=== PATIENT | female | born 1960 | race African-American/Black ===

== ENCOUNTER 2016-10-26 21:32 | Inpatient (IN) ==
[2016-10-26] MEDS ORDERED: METOCLOPRAMIDE 10 MG/2 ML VIAL IV STA (22:02)
[2016-10-26] MEDS ORDERED: SODIUM CHLORIDE 0.9% 1,000 ML IV STA (22:02)
[2016-10-26] MEDS ORDERED: ONDANSETRON 4 MG/2 ML VIAL IV STA (22:02)
[2016-10-26] MEDS ORDERED: PANTOPRAZOLE 40 MG VIAL IV STA (22:02)
[2016-10-26] MEDS ORDERED: PANTOPRAZOLE 40 MG VIAL IV ONE (22:13)
[2016-10-26] MEDS ORDERED: ONDANSETRON 4 MG/2 ML VIAL ONE (22:14)
--- NOTE | 2016-10-26 22:23 | Emergency Department Note ---
Arrival - Arrival Chief Complaint: Abdominal / Flank Pain ED Nursing Triage Note: TRANSFER FROM [facility] IN STAPLES. WAS SEEN IN CLINIC EARLIER TODAY FOR C/O RIGHT UPPER ABD PAIN THAT STARTED WED. WAS TRANSFERRED TO [facility] FOR CT WHICH SHOWED SMALL BOWEL OBSTRUCTION Mode of Arrival: Stretcher Limitations: No Limitations Source: Patient Time Seen by Provider: 10/26/16 22:02 - History of Present Illness HPI Narrative: This 56-year-old black female presents on referral from [facility] for complaints of alleged small bowel obstruction. The patient states for the last 3 days she's had problems with nausea, vomiting, and abdominal cramps. However , most of those symptoms ended last night. She went to her medical clinic earlier today where they felt she needed further evaluation. A CT scan at [facility] was interpreted as a small bowel obstruction and she was transferred here. Currently the patient states she feels queasy but does not feel nauseated nor has any pain at the moment. She currently is in no medical distress. Onset (ago): day(s) (patient presents 3 days post-onset of symptoms) Consistency: constant Review of System - Review of System 12 point system: reviewed and no additional remarkable complaints except as stated - Review of System Gastrointestinal: Present: as per HPI Medical,Surgical,& Family Hx - Social History Smoking Status: Never smoker Frequency of Alcohol Use: None Type of Drug Use: None Exam Physical Examination: GENERAL: Well developed, well nourished black female in no acute distress. HEENT: Normocephalic. No trauma. Moist mucous membranes. EOMI. PERRLA. NECK: Supple. No adenopathy. CARDIAC: Regular. No murmurs. Heart rate 74 CHEST: Clear to auscultation. No respiratory distress. O2 sat 99% ABDOMEN: Soft. Nontender. Hypoactive bowel sounds. EXTREMITIES: No trauma. Normal ROM. No pedal edema. SKIN: No diaphoresis. No rash. NEURO: Alert. Neuro intact. No focal deficits. Vital Signs: Vital Signs Temperature 98.0 F 10/26/16 21:37 Pulse Rate 74 10/26/16 21:37 Respiratory Rate 18 10/26/16 21:37 Blood Pressure 138/78 10/26/16 21:37 O2 Sat by Pulse Oximetry 99 10/26/16 21:37 Course - Reevaluation(s) Reevaluation #1: Patient presents expectant of admission - Consultations Consultation #1: Discussed with Dr. Woodard who will admit for further evaluation and treatment Results - Labs Labs: Lab prolactin reveals a BUN of 13 creatinine 1.1 sodium 138 potassium 4.1 white blood cell count 9800 hematocrit 43 - Diagnostic Findings Procedure: CT Abdomen and Pelvis: image reviewed by me, report reviewed by me ( evaluation by our radiologist reveals evidence of inflammatory bowel disease with thickening of the small bowel wall associated with ascites and some mild pneumatosis intestinalis. There was no evidence of appendicitis and giving out intermittently nor of small bowel obstruction.) Disposition Clinical Impression: inflammatory bowel disease, ascites, pneumocystis intestinalis Case discussed with: patient Disposition: Still a Patient Condition: Guarded Time of Disposition: 22:29
[2016-10-26 22:36] LABS: Basophils % 0.1 % (0.0-0.8); Eosinophils % 0.1 % (0.00-10.9); Hematocrit 40.8 VOL% (35.7-47.0); Hemoglobin 13.3 GM/DL (12.0-16.0); Immature Granulocytes % 0.2 %; Immature Granulocytes Absolute 0.02 #; Lymphocytes # 2.1 10*3/uL (1.4-4.0); Lymphocytes % 21.3 % (21.3-54.2); Mean Corpuscular HGB Conc 32.6 GM/DL (32-36); Mean Corpuscular Hemoglobin 26 PG (27-34); Mean Corpuscular Volume 79.5 FL (87-102); Mean Platelet Volume 11.2 FL (9.6-12.0); Monocytes # 0.6 10*3/uL (0.11-0.8); Monocytes % 6.3 % (1.7-12.7); Neutrophils # 7.2 10*3/uL (1.4-7.4); Platelet Count 207 T/CUMM (130-400); Red Blood Count 5.13 MC/CUMM (3.8-5.5); Red Cell Distribution Width 14.1 % (9.3-17.3)
[2016-10-26 22:47] LABS: PT Patient Result 10.9 SECS; Partial Thromboplastin Time 25.4 SECS (0-40)
[2016-10-26 22:52] LABS: Albumin 3.3 G/DL (3.4-5.0); Bilirubin,Total 0.8 MG/DL (0.2-1.0); Calcium 8.4 MG/DL (8.5-10.1); Osmolality,Calculated 282.1 MOS/KG (273-304); Potassium 3.8 MMOL/L (3.5-5.1); Total Protein 6.8 G/DL (6.4-8.3)
[2016-10-26 22:53] LABS: Lactic Acid 1.1 MMOL/L (0.4-2.0)
[2016-10-26] MEDS ORDERED: MORPHINE 2 MG/1 ML SYRINGE IV PRN (23:28)
[2016-10-26] MEDS ORDERED: ACETAMINOPHEN 325 MG TABLET PO PRN (23:28)
[2016-10-26] MEDS ORDERED: DOCUSATE SODIUM 100 MG CAPSULE PO PRN (23:28)
[2016-10-26] MEDS ORDERED: SODIUM CHLORIDE 0.9% 1,000 ML IV SCH (23:30)
--- NOTE | 2016-10-26 23:44 | Hospitalist History & Physical ---
Assessment and Plan (1) Abdominal pain Status: Acute Current Visit: Yes (2) Enteritis Status: Acute Assessment and plan: Plan: 2/3: We'll start empiric antibiotics Cipro/Flagyl, consult GI for further workup of questionable IBD. We'll check stool studies as well to rule out infection as a possible etiology. Current Visit: Yes History of Present Illness Chief complaint: abd pain History of present illness: Ms. Sr is a 56 year old female with abdominal pain since Saturday. Located more on the right side, she states she now has diffuse pain, 6 out of 10 at worst, relieved with pain medication the ER however not fully resolved. She states she had nausea and vomiting yesterday multiple times but did have a small bowel movement. Today she was able to keep a small amount of food down but no BM or flatus today. She has not had any vomiting today either. No sick contacts. No history of high blood pressure diabetes, she is not on any daily medications other than vitamins. Her only surgery was a partial hysterectomy. Right now her symptoms are constant, she is in no fulminant distress. Apparently her CT abdomen and pelvis was initially read as a small bowel obstruction however ER physician consulted with our on-call radiologist and was felt to be more consistent with IBD/enteritis. Home Medications Medication Instructions Recorded Confirmed Type Multivitamin (Centrum) [Centrum 1 tablet PO DAILY 10/26/16 10/27/16 History Tab] Allergies Allergy/AdvReac Type Severity Reaction Status Date / Time No Known Allergies Allergy Verified 10/26/16 22:52 Medical,Surgical,& Family Hx - Medical History Cardio: No history of: CAD, Hypertension Endocrine: No history of: Diabetes Mellitus (NIDDM) Respiratory: No history of: COPD Gastrointestinal: No history of: GERD, GI Problems - Surgical History Reproductive Surgeries: Surgical HX of;: Gynecologic Surgery (partial hysterectomy) - Family History Family History: noncontributory - Social History Smoking Status: Never smoker Frequency of Alcohol Use: None Type of Drug Use: None Marital Status: Unknown Functional capacity: independent ambulation Review of systems: A 12 point review of systems is negative except as specified in the HPI Exam - Constitutional Vitals: Period Temp Pulse Resp BP Sys/Alcaraz Pulse Ox Last 24 Hr 98.0 F 74 18 138/78 99 Exam: EXAM: CONSTITUTIONAL: non toxic, NAD HEENT: NC, AT, OP benign, HAYES, EOMI CV: RRR no m/g/r RESP: clear B/L, no w/r/r GI: abd soft, mild diffuse tenderness to palpation, no rebound, ND, +bowel sounds INTEGUMENTARY: no lesions or rash EXTREMITIES: no c/c/e NEURO: no focal deficits PSYCH: unremarkable, A/O x3 Results - Labs CBC & BMP: 10/26/16 22:19 10/26/16 22:19 Lab Results: I have reviewed the past 24 hour labs - Diagnostic Findings Procedure: CT Abdomen and Pelvis: image reviewed by me, report reviewed by me
[2016-10-27] MEDS: CIPROFLOXACIN INJ 400 MG in PREMIX 1 EACH IV SCH ×2 (01:54→14:22)
[2016-10-27] MEDS: metroNIDAZOLE INJ 500 MG in PREMIX 1 EACH IV SCH ×3 (03:04→18:02)
[2016-10-27 03:51] LABS: Basophils % 0.1 % (0.0-0.8); Eosinophils % 0.1 % (0.00-10.9); Hematocrit 42.1 VOL% (35.7-47.0); Hemoglobin 13.5 GM/DL (12.0-16.0); Immature Granulocytes % 0.2 %; Immature Granulocytes Absolute 0.02 #; Lymphocytes # 1.7 10*3/uL (1.4-4.0); Lymphocytes % 19.2 % (21.3-54.2); Mean Corpuscular HGB Conc 32.1 GM/DL (32-36); Mean Corpuscular Hemoglobin 26 PG (27-34); Mean Corpuscular Volume 81.6 FL (87-102); Mean Platelet Volume 12.1 FL (9.6-12.0); Monocytes # 0.7 10*3/uL (0.11-0.8); Monocytes % 7.5 % (1.7-12.7); Neutrophils # 6.6 10*3/uL (1.4-7.4); Neutrophils % 72.9 % (38.7-73.9); Platelet Count 202 T/CUMM (130-400); Red Blood Count 5.16 MC/CUMM (3.8-5.5)
[2016-10-27 04:17] LABS: Calcium 8.1 MG/DL (8.5-10.1); Osmolality,Calculated 279.4 MOS/KG (273-304); Potassium 3.9 MMOL/L (3.5-5.1)
[2016-10-27] MEDS: PANTOPRAZOLE 40 MG TABLET PO SCH (08:12)
[2016-10-27] MEDS: ENOXAPARIN 40 MG/0.4 ML SYRINGE SUBCUT SCH (08:12)
[2016-10-27] MEDS: ONDANSETRON 4 MG/2 ML VIAL IV PRN (08:13)
--- NOTE | 2016-10-27 09:42 | XRay Report ---
Exam: XR abdomen 1V Date: 10/27/2016 4:00 AM Comparison: None Indication: Generalized abdominal pain Technique: Supine abdomen Findings: Retained contrast in the bowel from recent CT. No significant oral contrast reaching the colon. Dilated loops of small bowel with the largest loop measuring 52 mm. Bowel wall thickening. No acute osseous findings. Impression: Retained oral contrast in the bowel which does not reach the colon. Minimal to moderate dilatation of the small bowel with bowel wall thickening. These findings can be seen with SBO and followup x-ray may be helpful for further evaluation. PROCEDURE INTERPRETED AT [facility] DEPARTMENT OF RADIOLOGY Final Report Signed by: Dr. Tamiko Williamson
--- NOTE | 2016-10-27 15:41 | Gastrointestinal Consult Note ---
Assessment and Plan (1) Abdominal pain Status: Acute Current Visit: Yes (2) Abnormal findings on diagnostic imaging of abdomen Status: Acute Current Visit: Yes (3) Other specified counseling Status: Acute Current Visit: Yes History of Present Illness History of present illness: Ms. Sr is a 56 year old female Home Medications Medication Instructions Recorded Confirmed Type Multivitamin (Centrum) [Centrum 1 tablet PO DAILY 10/26/16 10/27/16 History Tab] Allergies Allergy/AdvReac Type Severity Reaction Status Date / Time No Known Allergies Allergy Verified 10/26/16 22:52 Medical,Surgical,& Family Hx - Medical History Cardio: No history of: CAD, Hypertension Endocrine: No history of: Diabetes Mellitus (IDDM), Diabetes Mellitus (NIDDM) Respiratory: No history of: COPD Gastrointestinal: No history of: GERD, GI Problems - Surgical History Reproductive Surgeries: Surgical HX of;: Gynecologic Surgery (partial hysterectomy), Hysterectomy (partial) - Family History Family History: Reports;: Family Hypertension (Mother) - Social History Smoking Status: Never smoker Frequency of Alcohol Use: None Type of Drug Use: None Exam - Constitutional Vitals: Period Temp Pulse Resp BP Sys/Alcaraz Pulse Ox Last 24 Hr 98.0 F-99.2 F 70-77 16-20 113-159/62-90 96-100 Results - Labs CBC & BMP: 10/27/16 02:38 10/27/16 02:38 Note Addendum: PLEASE NOTE -- automatic citation of patient information is unavoidable in this electronic note. I have made a reasonable effort to review the information cited , but it is not a part of my evaluation, impression, or recommendation unless specifically discussed in the dictated text that follows. As well, voice recognition software was used in the creation of this clinical note. Reasonable effort was made to identify and correct gross errors. Despite proofreading, errors in piece cutter may be present, including nonsense verbiage at times. If you encounter such an error, please contact me at for discussion and correction. -- Nyasia Chief complaint: abdominal pain History of present illness: this is a new patient, a 56-year-old female seen by consultation for evaluation of abdominal pain and enteritis. The patient is admitted to the hospitalist service under the care of Dr. Woodard with primary diagnosis of same. She reports her usual state of health prior to this past Saturday when she experienced onset of subacute right-sided abdominal pain, migratory, now diffuse in location, moderately severe, unrelated to body position, not reliably related to viewing take, and associated with both nausea and vomiting but no diarrhea. Evaluation in the emergency department was felt to be consistent with infectious or inflammatory enteritis and the patient was admitted for antibiotic therapy and volume resuscitation. She is improved but minimally, and has not begun to tolerate food. She has no bowel movements documented since her arrival in doesn't think she is really passing very much gas. She is unaware of any sick contacts. She is unaware of any tainted food exposure. She is unaware of any family history of inflammatory bowel disease. Patient denies fever, chills, night sweats, rigors, headache, dizziness, neck pain, visual changes, redness of the eyes, dysphagia, odynophagia, difficulty chewing, chest pain, shortness of breath, hematemesis, hematochezia, melena, proctalgia, constipation, dysuria, skin changes, temperature regulation issues, flushing, easy bleeding/bruising, musculoskeletal pain, mental status change, numbness/weakness in the extremities, yellowing of the eyes/skin, cutaneous eruptions, and other complaints in general. Review of systems: 12 point review of systems was negative except as documented above. Outpatient medications: multivitamin Inpatient medications: Tylenol, ciprofloxacin, Colace, Lovenox, [place], Flagyl, Zofran, Protonix Past Medical History: minimal Social history: negative tobacco. Negative alcohol Family history: no gastrointestinal cancers Physical examination: Vital Signs: Current vital signs reviewed and documented above. General Appearance: well-appearing. Not acutely ill. Head: Normocephalic. Neck: Palpation of the neck revealed no abnormalities. Eyes: No scleral icterus. No scleral injection. No conjunctival pallor. Oral Cavity: Odor of breath was normal. No drooling was observed. Lips showed no abnormalities. Floor of the mouth showed no abnormalities. Pharynx: Oropharynx was normal. Lungs: Respiration rhythm and depth was normal. Cardiovascular: Heart rate and rhythm were normal. No murmurs were appreciated. Abdomen: abdomen was not distended. Abdominal palpation revealed minimal tenderness and no hepatosplenomegaly. Ascites was not discovered. Abdominal auscultation revealed positive bowel sounds. Musculoskeletal System: Musculoskeletal system was grossly normal. Neurological: level of consciousness was normal. Speech was normal. Skin: General appearance was normal. Color and pigmentation were normal. No skin lesions. Laboratory: white blood count 9.0, hemoglobin 13.5, hematocrit 42.1, platelets 202, INR 1.0, PT 10.9, ALT 15, AST 13, total bilirubin 0.8, total protein 6.8, albumin 3.3 Radiology: CT scan taken yesterday at a outside facility revealed moderately dilated fluid-filled small bowel loops mucosal thickening involving the jejunum and ileum but without evidence of perforation, mucosal thickening in the stomach , and no finding with other abdominal organs. Abdominal x-ray taken on arrival here yesterday also demonstrated dilation of the small bowel with possible developing small bowel obstruction. Impressions: 1. Abdominal pain -- the differential diagnosis includes partial small bowel obstruction, infectious/inflammatory gastroenteritis, ischemic mesentery, and others. The patient does not report a history of inflammatory bowel disease , neither in herself nor in her family. While this is not necessarily protective , it may reduce her personal risk. I agree with antibiotic, bowel rest, and volume resuscitation. Presuming improvement, she will need to have surveillance radiology, upper endoscopy, and colonoscopy to ensure there is no evidence of same. She does not have a personal history of PVD, CAD, DM, etc. and may be at less risk for vascular compromise on that basis. There is no nausea or vomiting , abdominal distention, or loss of bowel sounds so probably does not need nasogastric decompression but would have a low threshold for same. If she does not improve significantly over the next 24 hours consideration will need to be given to surgical consultation. 2. Abnormal imaging of the small bowel -- as discussed above. 3. Other specified counseling: The patient was seen for greater than 30 minutes. The patient was counseled for greater than 50% of this time regarding differential diagnosis, likely diagnosis, diagnostic and therapeutic alternatives, risks/benefits/alternatives of medications and procedures, and plan of care generally. The patient expressed understanding and wishes to proceed. Recommendations: -- aggressive volume management -- continue antibiotic -- clear liquid diet as tolerated -- consider surgical consultation if symptoms do not improve -- radiologic surveillance during convalescence -- upper and lower endoscopy during convalescence -- thank you for this consultation. We will follow with you.
--- NOTE | 2016-10-27 16:54 | Hospitalist Progress Note ---
Assessment and Plan (1) Abdominal pain Status: Acute Current Visit: Yes (2) Partial small bowel obstruction Status: Suspected Current Visit: Yes (3) Enteritis Status: Acute Assessment and plan: Plan: 10/26: We'll start empiric antibiotics Cipro/Flagyl, consult GI for further workup of questionable IBD. We'll check stool studies as well to rule out infection as a possible etiology. 10/27: At this point there is concern for small bowel obstruction given findings on KUB. We'll repeat x-ray in the morning to see if she is passing contrast in the large bowel. If not will consult surgery. At this time she does not appear to have an acute abdomen, and will continue conservative measures for now. Current Visit: Yes Hospitalist: Subjective Interval history: Ms. Sr continues to have nausea and has had 2 episodes of vomiting today. She states her abdominal pain is actually much improved from admission. She has yet the past flatus or BM. KUB showed retained contrast in the small bowel was passed into the colon, worrisome for possible obstruction. Exam - Constitutional Vitals: Period Temp Pulse Resp BP Sys/Alcaraz Pulse Ox Last 24 Hr 98.0 F-99.4 F 70-78 16-20 113-159/62-90 96-100 Exam: EXAM: CONSTITUTIONAL: non toxic, NAD HEENT: NC, AT, OP benign, HAYES, EOMI CV: RRR no m/g/r RESP: clear B/L, no w/r/r GI: abd soft, mild diffuse tenderness to palpation, no rebound, ND, + hypoactive bowel sounds INTEGUMENTARY: no lesions or rash EXTREMITIES: no c/c/e NEURO: no focal deficits PSYCH: unremarkable, A/O x3 Results - Labs CBC & BMP: 10/27/16 02:38 10/27/16 02:38 Lab Results: I have reviewed the past 24 hour labs - Diagnostic Findings Procedure: KUB x-ray: image reviewed by me, report reviewed by me
[2016-10-28] MEDS: CIPROFLOXACIN INJ 400 MG in PREMIX 1 EACH IV SCH ×2 (01:33→13:55)
[2016-10-28] MEDS: metroNIDAZOLE INJ 500 MG in PREMIX 1 EACH IV SCH ×3 (03:01→18:08)
[2016-10-28 06:00] LABS: Basophils % 0.3 % (0.0-0.8); Eosinophils # 0.1 10*3/uL (0.0-0.87); Eosinophils % 0.8 % (0.00-10.9); Hematocrit 37.6 VOL% (35.7-47.0); Hemoglobin 12.3 GM/DL (12.0-16.0); Immature Granulocytes % 0.3 %; Immature Granulocytes Absolute 0.02 #; Lymphocytes # 1.4 10*3/uL (1.4-4.0); Lymphocytes % 18.4 % (21.3-54.2); Mean Corpuscular HGB Conc 32.7 GM/DL (32-36); Mean Corpuscular Hemoglobin 26 PG (27-34); Mean Corpuscular Volume 79.5 FL (87-102); Mean Platelet Volume 10.9 FL (9.6-12.0); Monocytes # 0.7 10*3/uL (0.11-0.8); Monocytes % 9.4 % (1.7-12.7); Neutrophils # 5.3 10*3/uL (1.4-7.4); Neutrophils % 70.8 % (38.7-73.9); Platelet Count 179 T/CUMM (130-400); Red Blood Count 4.73 MC/CUMM (3.8-5.5); White Blood Count 7.5 T/CUMM (4-12)
[2016-10-28 06:21] LABS: Calcium 7.9 MG/DL (8.5-10.1); Osmolality,Calculated 276.4 MOS/KG (273-304); Potassium 3.7 MMOL/L (3.5-5.1)
[2016-10-28] MEDS: ENOXAPARIN 40 MG/0.4 ML SYRINGE SUBCUT SCH (08:28)
[2016-10-28] MEDS: PANTOPRAZOLE 40 MG TABLET PO SCH (08:28)
--- NOTE | 2016-10-28 09:45 | XRay Report ---
Exam: XR KUB Date: 10/28/2016 4:00 AM Comparison: 10/27/2016 Indication: Generalized pain with possible bowel obstruction Technique: Supine abdomen Findings: Retained oral contrast within the dilated small bowel. No significant oral contrast in the colon. No acute osseous findings. Impression: Retained oral contrast in the more dilated small bowel which can be seen with SBO, etc. No significant oral contrast reaching the colon. Persistent bowel wall thickening. PROCEDURE INTERPRETED AT [facility] DEPARTMENT OF RADIOLOGY Final Report Signed by: Dr. Tamiko Williamson
--- NOTE | 2016-10-28 11:13 | General Surgery Consult Note ---
Assessment and Plan - Time spent with patient Time spent with patient: Less than 30 minutes (1) Partial small bowel obstruction Status: Suspected Assessment and plan: She has symptoms that could be consistent with partial small bowel obstruction and may be partially secondary to the findings seen on CT scan. She currently denies nausea or vomiting and is had passage of bowel movement. Her abdomen is nondistended and nontender this point. I would manage this conservatively as you were doing however if she fails to resolve then we may want to repeat her CT scan. I do not see evidence of complete bowel obstruction or surgical abdomen at this time Current Visit: Yes History of Present Illness Chief complaint: abdominal pain History of present illness: Ms. Sr is a 56 year old female We began having poorly localized mid abdominal pain about 4 days ago. She describes the pain is crampy and moderate in severity. The pain did not radiate. The pain was intermittent she did not know of any aggravating or alleviating factors. She states that the pain is actually better over the last 24 hours. She had nausea and vomiting associated with it yesterday but this has since resolved. She is had no further nausea and vomiting today. She denies fever or chills. She denies vomiting of blood or passage of blood. She has never had pain like this before. She does feel like she is improving. She apparently had a CT scan done at [place] but I do not have the films of and this apparently showed some bowel wall thickening consistent with enteritis. She has had diarrhea and this is gotten better. Home Medications Medication Instructions Recorded Confirmed Type Multivitamin (Centrum) [Centrum 1 tablet PO DAILY 10/26/16 10/27/16 History Tab] Allergies Allergy/AdvReac Type Severity Reaction Status Date / Time No Known Allergies Allergy Verified 10/26/16 22:52 Medical,Surgical,& Family Hx - Medical History Cardio: No history of: CAD, Hypertension Endocrine: No history of: Diabetes Mellitus (IDDM), Diabetes Mellitus (NIDDM) Respiratory: No history of: COPD Gastrointestinal: No history of: GERD, GI Problems - Surgical History Reproductive Surgeries: Surgical HX of;: Gynecologic Surgery (partial hysterectomy), Hysterectomy (partial) - Family History Family History: Reports;: Family Hypertension (Mother) - Social History Smoking Status: Never smoker Frequency of Alcohol Use: None Type of Drug Use: None - Constitutional Constitutional: Present: anorexia. Absent: chills, fever(s), weight loss - EENT Nose, mouth and throat: Absent: sore throat - Cardiovascular Cardiovascular: Absent: chest pain at rest, chest pain with activity, dyspnea, dyspnea on exertion, syncope - Respiratory Respiratory: Absent: cough, dyspnea, hemoptysis, dyspnea on exertion - Gastrointestinal Gastrointestinal: Present: abdominal pain, bloating, diarrhea, nausea, vomiting. Absent: hematemesis, hematochezia, melena, jaundice - Genitourinary Genitourinary: Absent: difficulty urinating, dysuria, hematuria - Musculoskeletal Musculoskeletal: Absent: back pain - Neurological Neurological: Absent: focal weakness, syncope - Endocrine Endocrine: Absent: polyuria Hematologic/Lymphatic: Absent: easy bleeding, easy bruising Exam - Constitutional Vitals: Period Temp Pulse Resp BP Sys/Alcaraz Pulse Ox Last 24 Hr 97.8 F-99.4 F 73-83 16-20 117-152/69-87 95-99 General appearance: no acute distress - Head Head exam: Present: normocephalic - Eye Eye exam: Present: EOMI. Absent: scleral icterus Pupils: Present: HAYES - ENT Mouth exam: Present: normal voice - Neck Neck exam: Present: trachea midline. Absent: lymphadenopathy, tenderness, thyromegaly - Respiratory Respiratory exam: Present: clear to auscultation bilaterally. Absent: accessory muscle use - Cardiovascular Cardiovascular exam: Present: RRR - GI/Abdominal GI/Abdominal exam: Present: normal bowel sounds, soft. Absent: distended, guarding, mass, tenderness, rebound - Extremities Exam Extremities exam: Absent: edema - Back Exam Back exam: Present: normal inspection - Neurological Exam Neurological exam: Present: alert, oriented X3. Absent: motor sensory deficit Speech: Present: normal - Skin Skin exam: Present: normal color Results - Labs CBC & BMP: 10/28/16 05:43 10/28/16 05:44 Lab Results: I have reviewed the past 24 hour labs
--- NOTE | 2016-10-28 11:41 | Gastrointestinal Progress Note ---
Assessment and Plan (1) Abdominal pain Status: Acute Current Visit: Yes (2) Abnormal findings on diagnostic imaging of abdomen Status: Acute Current Visit: Yes (3) Other specified counseling Status: Acute Current Visit: Yes Exam (Progress Note) - Constitutional Vitals: Period Temp Pulse Resp BP Sys/Alcaraz Pulse Ox Last 24 Hr 97.8 F-99.4 F 73-83 16-20 117-152/69-87 95-99 Results - Labs CBC & BMP: 10/28/16 05:43 10/28/16 05:44 Note Addendum: PLEASE NOTE -- automatic citation of patient information is unavoidable in this electronic note. I have made a reasonable effort to review the information cited , but it is not a part of my evaluation, impression, or recommendation unless specifically discussed in the dictated text that follows. As well, voice recognition software was used in the creation of this clinical note. Reasonable effort was made to identify and correct gross errors. Despite proofreading, errors in medical photographer may be present, including nonsense verbiage at times. If you encounter such an error, please contact me at for discussion and correction. -- Nyasia Chief complaint: abdominal pain History of present illness: the patient is a 56-year-old female seen with abnormal imaging of the small bowel. She reports feeling some better today. She has been taking oral nutrition and tolerating that. She has not had a bowel movement but is passing gas. Review of systems: 12 point review of systems was negative except as documented above. Inpatient medications: Tylenol, ciprofloxacin, Colace, Lovenox, Conklin, Flagyl, Zofran, Protonix Physical examination: Vital Signs: Current vital signs reviewed and documented above. General Appearance: well-appearing. Not acutely ill. Head: Normocephalic. Neck: Palpation of the neck revealed no abnormalities. Eyes: No scleral icterus. No scleral injection. No conjunctival pallor. Oral Cavity: Odor of breath was normal. No drooling was observed. Lips showed no abnormalities. Floor of the mouth showed no abnormalities. Pharynx: Oropharynx was normal. Lungs: Respiration rhythm and depth was normal. Cardiovascular: Heart rate and rhythm were normal. No murmurs were appreciated. Abdomen: abdomen was not distended. Abdominal palpation revealed minimal tenderness and no hepatosplenomegaly. Ascites was not discovered. Abdominal auscultation revealed positive bowel sounds. Musculoskeletal System: Musculoskeletal system was grossly normal. Neurological: level of consciousness was normal. Speech was normal. Skin: General appearance was normal. Color and pigmentation were normal. No skin lesions. Laboratory: white blood count 7.5, hemoglobin 12.3, hematocrit 37.6, platelets 179 Radiology: plain film of the abdomen reveals retained oral contrast in the small bowel and persistent small bowel wall thickening. Impressions: 1. Abdominal pain -- the differential is unchanged at this point but the patient does seem to be feeling some better. She has seen a marine consultant who does not believe that she has indication for surgical intervention at this point. I recommend continued conservative therapy as previously discussed. 2. Abnormal imaging of the small bowel -- as discussed above. 3. Other specified counseling: The patient was seen for less than 30 minutes. The patient was counseled for greater than 50% of this time regarding differential diagnosis, likely diagnosis, diagnostic and therapeutic alternatives, risks/benefits/alternatives of medications and procedures, and plan of care generally. The patient expressed understanding and wishes to proceed. Recommendations: -- aggressive volume management -- continue antibiotic -- clear liquid diet as tolerated -- agree with surgical consultation -- radiologic surveillance during convalescence -- upper and lower endoscopy during convalescence -- thank you for this consultation. Dr. Champagne will assume G.I. care for this patient tomorrow
--- NOTE | 2016-10-28 15:58 | Hospitalist Progress Note ---
Assessment and Plan (1) Abdominal pain Status: Acute Current Visit: Yes (2) Partial small bowel obstruction Status: Suspected Current Visit: Yes (3) Enteritis Status: Acute Assessment and plan: Plan: 2/: We'll start empiric antibiotics Cipro/Flagyl, consult GI for further workup of questionable IBD. We'll check stool studies as well to rule out infection as a possible etiology. 2: At this point there is concern for small bowel obstruction given findings on KUB. We'll repeat x-ray in the morning to see if she is passing contrast in the large bowel. If not will consult surgery. At this time she does not appear to have an acute abdomen, and will continue conservative measures for now. 10/28: According to the patient she has NOT had any passage of even a tiny BM or flatus since admission, despite this being documented in her ins and outs. Continue conservative measures for now, repeat KUB in the morning. Appreciate GI and surgical input. Current Visit: Yes Hospitalist: Subjective Interval history: Patient still has mild abdominal pain which is well controlled with pain medication. Looking at her ins and outs, a BM was documented however when I asked the patient about this she states she's had no BM whatsoever since she's been here. She denies passing flatus either. She has less nausea today. KUB continued to show retained contrast in the small bowel. Exam - Constitutional Vitals: Period Temp Pulse Resp BP Sys/Alcaraz Pulse Ox Last 24 Hr 97.8 F-99.4 F 69-83 16-20 117-152/69-87 95-99 Exam: EXAM: CONSTITUTIONAL: non toxic, NAD HEENT: NC, AT, OP benign, HAYES, EOMI CV: RRR no m/g/r RESP: clear B/L, no w/r/r GI: abd soft, mild diffuse tenderness to palpation, no rebound, ND, + hypoactive bowel sounds INTEGUMENTARY: no lesions or rash EXTREMITIES: no c/c/e NEURO: no focal deficits PSYCH: unremarkable, A/O x3 Results - Labs CBC & BMP: 10/28/16 05:43 10/28/16 05:44 Lab Results: I have reviewed the past 24 hour labs - Diagnostic Findings Procedure: KUB x-ray: image reviewed by me, report reviewed by me
[2016-10-29] MEDS: CIPROFLOXACIN INJ 400 MG in PREMIX 1 EACH IV SCH ×2 (02:19→16:15)
[2016-10-29] MEDS: metroNIDAZOLE INJ 500 MG in PREMIX 1 EACH IV SCH ×3 (03:28→18:08)
[2016-10-29 06:21] LABS: Basophils % 0.2 % (0.0-0.8); Eosinophils # 0.1 10*3/uL (0.0-0.87); Eosinophils % 2.3 % (0.00-10.9); Hematocrit 34.2 VOL% (35.7-47.0); Immature Granulocytes % 0.2 %; Immature Granulocytes Absolute 0.01 #; Lymphocytes # 2.2 10*3/uL (1.4-4.0); Mean Corpuscular HGB Conc 32.2 GM/DL (32-36); Mean Corpuscular Hemoglobin 26 PG (27-34); Mean Corpuscular Volume 80.9 FL (87-102); Mean Platelet Volume 11.5 FL (9.6-12.0); Monocytes # 0.7 10*3/uL (0.11-0.8); Monocytes % 12.3 % (1.7-12.7); Neutrophils # 2.3 10*3/uL (1.4-7.4); Platelet Count 165 T/CUMM (130-400); Red Blood Count 4.23 MC/CUMM (3.8-5.5); Red Cell Distribution Width 13.9 % (9.3-17.3); White Blood Count 5.3 T/CUMM (4-12)
[2016-10-29 06:52] LABS: Osmolality,Calculated 279.1 MOS/KG (273-304); Potassium 3.6 MMOL/L (3.5-5.1)
[2016-10-29] MEDS: PANTOPRAZOLE 40 MG TABLET PO SCH (08:32)
[2016-10-29] MEDS: ENOXAPARIN 40 MG/0.4 ML SYRINGE SUBCUT SCH (08:32)
--- NOTE | 2016-10-29 09:29 | XRay Report ---
History: Partial small bowel obstruction Date: 10/29/2016 Study: KUB Comparison exam: KUB 10/28/2016 There is mild disproportionate small bowel distention which is the same or minimally more prominent than on the comparison exam. There still some residual contrast in small bowel, though now a small amount of contrast is noted in the cecum. There is no gross mass lesion. Osseous structures are similar. Impression: Continued partial small bowel obstruction, the same or slightly increased PROCEDURE INTERPRETED AT [facility] DEPARTMENT OF RADIOLOGY Final Report Signed by: Dr. Yue Wallis
--- NOTE | 2016-10-29 09:59 | Gastrointestinal Progress Note ---
<WilburKatalina Parrish - Last Filed: 10/29/16 09:55> Assessment and Plan (1) Abdominal pain Status: Acute Assessment and plan: 2/3-Pain improved at present time. No N/V. NO BM or flatus. Tolerating clear liquids at present. KUB shows minimal change in SBO. Plan and addendum to follow by Dr Champagne. Current Visit: Yes Gastroenterology - PN: Subj Interval history: CC: Enteritis Pt is awaken alert, sitting up in chair. States she does feel better today than she did on admission. She still has not had a bowel movement since Saturday and denies passing any flatus at present time. Abdomen is soft, nontender. Denies any pain at present. Denies nausea or vomiting. Tolerated clear liquids this morning. KUB this morning shows continued partial small bowel obstruction, with minimal change. Noted that CT w/o contrast at outside facility on admission showed fluid in the pelvis, with dilated small bowel loops and distended distal jejunum as well as gastric thickening. There is no prior history in our facility database. ROS: Denies SOB or chest pain Exam (Progress Note) - Constitutional Vitals: Period Temp Pulse Resp BP Sys/Alcaraz Pulse Ox Last 24 Hr 9.4 F-99.1 F 64-70 16-19 97-132/48-73 95-99 General appearance: normal weight, no acute distress - Head Head exam: Present: normal inspection, normocephalic - Eye Eye exam: Present: other (lids and conjunctiva unremarakble). Absent: scleral icterus - ENT ENT exam: Present: normal exam, normal oropharynx - Neck Neck exam: Present: normal inspection - Respiratory Respiratory exam: Present: clear to auscultation bilaterally. Absent: rales, rhonchi, wheezes - Cardiovascular Cardiovascular exam: Present: regular rate and rhythm. Absent: diastolic murmur , JVD, systolic murmur - GI/Abdominal GI/Abdominal exam: Present: normal bowel sounds, soft. Absent: ascites, distended, mass, organomegaly, tenderness - Extremities Exam Extremities exam: Present: normal inspection, full ROM - Back Exam Back exam: Present: normal inspection - Neurological Exam Neurological exam: Present: alert, oriented X3 - Psychiatric Psychiatric exam: Present: normal affect, normal mood - Skin Skin exam: Present: normal color, warm, dry Results - Labs CBC & BMP: 10/29/16 05:39 10/29/16 05:39 Lab Results: I have reviewed the past 24 hour labs <Wilmer Champagne - Last Filed: 10/29/16 17:44> Exam (Progress Note) - Constitutional Vitals: Period Temp Pulse Resp BP Sys/Alcaraz Pulse Ox Last 24 Hr 9.4 F-99.1 F 61-70 18-18 97-129/48-74 95-99 Results - Labs CBC & BMP: 10/29/16 05:39 10/29/16 05:39
--- NOTE | 2016-10-29 11:37 | Hospitalist Progress Note ---
Assessment and Plan (1) Abdominal pain Status: Acute Current Visit: Yes (2) Partial small bowel obstruction Status: Suspected Current Visit: Yes (3) Enteritis Status: Acute Assessment and plan: Plan: 2/3: We'll start empiric antibiotics Cipro/Flagyl, consult GI for further workup of questionable IBD. We'll check stool studies as well to rule out infection as a possible etiology. 2: At this point there is concern for small bowel obstruction given findings on KUB. We'll repeat x-ray in the morning to see if she is passing contrast in the large bowel. If not will consult surgery. At this time she does not appear to have an acute abdomen, and will continue conservative measures for now. 10/28: According to the patient she has NOT had any passage of even a tiny BM or flatus since admission, despite this being documented in her ins and outs. Continue conservative measures for now, repeat KUB in the morning. Appreciate GI and surgical input. 10/29: Continue conservative management. Encourage out of bed/ambulation. She is tolerating clear liquids and medications without nausea or vomiting. Follow- up KUB in the morning. Current Visit: Yes Hospitalist: Subjective Interval history: Ms. Sr is tolerating clear liquids but still no flatus or BM. She denies abdominal pain states her nausea is better. A minimal amount of contrast has passed into the cecum on KUB today. Exam - Constitutional Vitals: Period Temp Pulse Resp BP Sys/Alcaraz Pulse Ox Last 24 Hr 9.4 F-99.1 F 61-70 16-19 97-132/48-73 95-99 Exam: EXAM: CONSTITUTIONAL: non toxic, NAD HEENT: NC, AT, OP benign, HAYES, EOMI CV: RRR no m/g/r RESP: clear B/L, no w/r/r GI: abd soft, nontender, no rebound, ND, bowel sounds more active today INTEGUMENTARY: no lesions or rash EXTREMITIES: no c/c/e NEURO: no focal deficits PSYCH: unremarkable, A/O x3 Results - Labs CBC & BMP: 10/29/16 05:39 10/29/16 05:39 Lab Results: I have reviewed the past 24 hour labs - Diagnostic Findings Procedure: KUB x-ray: image reviewed by me, report reviewed by me
[2016-10-29] MEDS ORDERED: MAGNESIUM HYDROXIDE SUSP 30 ML UDCUP PO ONE (15:59)
--- NOTE | 2016-10-29 15:59 | General Surgery Progress Note ---
Assessment and Plan (1) Partial small bowel obstruction Status: Suspected Assessment and plan: She has symptoms that could be consistent with partial small bowel obstruction and may be partially secondary to the findings seen on CT scan. She currently denies nausea or vomiting and is had passage of bowel movement. Her abdomen is nondistended and nontender this point. I would manage this conservatively as you were doing however if she fails to resolve then we may want to repeat her CT scan. I do not see evidence of complete bowel obstruction or surgical abdomen at this time 10/29: Her KUB still shows a picture consistent with partial small bowel obstruction though some contrast is moved into the cecum. She has no abdominal complaints today. She denies nausea or vomiting and is taking some liquids. She denies abdominal pain or abdominal cramping. She has not had a bowel movement. I have a hard time encouraging surgical intervention in light of the fact that she has no pain or abdominal symptoms. I would continue with conservative treatment and I think he can advance her diet. I will continue to follow. If she fails to improve we can repeat her CT scan. Current Visit: Yes Subjective Patient reports: Present: feels better, tolerating liquids well, no flatus, no bowel movement. Absent: still having pain, nausea, vomiting Exam - Constitutional Vitals: Period Temp Pulse Resp BP Sys/Alcaraz Pulse Ox Last 24 Hr 9.4 F-99.1 F 61-70 16-18 97-132/48-73 95-99 General appearance: no acute distress - Head Head exam: Present: normocephalic - Eye Eye exam: Absent: scleral icterus - Respiratory Respiratory exam: Absent: accessory muscle use - GI/Abdominal GI/Abdominal exam: Present: soft. Absent: distended, guarding, tenderness, rebound Results - Labs CBC & BMP: 10/29/16 05:39 10/29/16 05:39 Lab Results: I have reviewed the past 24 hour labs - Diagnostic Findings Procedure: KUB x-ray: report reviewed by me
[2016-10-30] MEDS: CIPROFLOXACIN INJ 400 MG in PREMIX 1 EACH IV SCH (01:48)
[2016-10-30] MEDS: metroNIDAZOLE INJ 500 MG in PREMIX 1 EACH IV SCH ×2 (03:50→12:44)
--- NOTE | 2016-10-30 07:27 | General Surgery Progress Note ---
Assessment and Plan (1) Partial small bowel obstruction Status: Suspected Assessment and plan: She has symptoms that could be consistent with partial small bowel obstruction and may be partially secondary to the findings seen on CT scan. She currently denies nausea or vomiting and is had passage of bowel movement. Her abdomen is nondistended and nontender this point. I would manage this conservatively as you were doing however if she fails to resolve then we may want to repeat her CT scan. I do not see evidence of complete bowel obstruction or surgical abdomen at this time 10/29: Her KUB still shows a picture consistent with partial small bowel obstruction though some contrast is moved into the cecum. She has no abdominal complaints today. She denies nausea or vomiting and is taking some liquids. She denies abdominal pain or abdominal cramping. She has not had a bowel movement. I have a hard time encouraging surgical intervention in light of the fact that she has no pain or abdominal symptoms. I would continue with conservative treatment and I think he can advance her diet. I will continue to follow. If she fails to improve we can repeat her CT scan. 10/30: She had changes on her KUB consistent with partial bowel obstruction. The patient is essentially asymptomatic this point. She has no abdominal cramping or any abdominal pain or distention. She is had no nausea or vomiting. I'm going to try a by mouth diet today. We will try liquids first and see if we can advance her diet. Current Visit: Yes Subjective Patient reports: Present: feels better, no flatus, no bowel movement. Absent: still having pain, nausea, vomiting, shortness of breath, fever Exam - Constitutional Vitals: Period Temp Pulse Resp BP Sys/Alcaraz Pulse Ox Last 24 Hr 98.1 F-98.8 F 60-73 18-19 105-129/62-74 96-100 General appearance: no acute distress - Respiratory Respiratory exam: Absent: accessory muscle use - GI/Abdominal GI/Abdominal exam: Present: soft. Absent: distended, tenderness, rebound Results - Labs CBC & BMP: 10/29/16 05:39 10/29/16 05:39 Lab Results: I have reviewed the past 24 hour labs
--- NOTE | 2016-10-30 07:40 | XRay Report ---
XR KUB Indication: Partial SBO Comparison: Abdominal x-ray dated October 29, 2016 Technique: Frontal views of the abdomen Findings: Contrast material noted within the small bowel the lower abdomen as well as within the cecum. There is mild distention of small bowel within the left upper quadrant, mid abdomen, and lower abdomen measuring up to 3.8 cm. Findings consistent with partial small bowel obstruction. Osseous and surrounding soft tissue structures appear grossly unchanged. IMPRESSION: As above. PROCEDURE INTERPRETED AT [facility] DEPARTMENT OF RADIOLOGY Final Report Signed by: Dr Myke Garcia
[2016-10-30] MEDS: MULTIVITAMIN (CENTRUM) TABLET PO SCH (08:12)
[2016-10-30] MEDS: PANTOPRAZOLE 40 MG TABLET PO SCH (08:13)
[2016-10-30] MEDS: ENOXAPARIN 40 MG/0.4 ML SYRINGE SUBCUT SCH (08:13)
--- NOTE | 2016-10-30 10:19 | Hospitalist Progress Note ---
Assessment and Plan - Time spent with patient Time spent with patient: Less than 30 minutes (due to assessment, plan and documentation.) (1) Partial small bowel obstruction Status: Suspected Assessment and plan: no BM or flatus yet hypoactive BS she has been advanced to a diet today no n/v or pain Current Visit: Yes Hospitalist: Subjective Interval history: Ms. Sr was seen on rounds this morning lying in bed talking on the phone. She states that she still had not had a BM, but denies any nausea, vomiting, or abdominal pain. Dr. Sukhdeep DEE is also following along with surgery for her partial small bowel obstruction. He has advanced her diet this morning and we will see how she tolerates this. Labs and vitals have been stable. Continue to follow alongside surgery. Exam - Constitutional Vitals: Period Temp Pulse Resp BP Sys/Alcaraz Pulse Ox Last 24 Hr 98.1 F-98.8 F 60-73 18-19 105-129/62-74 95-100 General appearance: normal weight, no acute distress - Head Head exam: Present: normal inspection, normocephalic - Eye Eye exam: Present: EOMI. Absent: scleral icterus Pupils: Present: HAYES, normal accommodation - ENT ENT exam: Present: normal exam, normal oropharynx - Neck Neck exam: Present: normal inspection. Absent: lymphadenopathy - Respiratory Respiratory exam: Present: clear to auscultation bilaterally. Absent: accessory muscle use - Cardiovascular Cardiovascular exam: Present: regular rate and rhythm. Absent: carotid bruit - GI/Abdominal GI/Abdominal exam: Present: hypoactive bowel sounds, soft. Absent: tenderness - Extremities Exam Extremities exam: Present: normal inspection. Absent: edema - Back Exam Back exam: Present: normal inspection. Absent: muscle spasm - Neurological Exam Neurological exam: Present: alert, oriented X3 - Psychiatric Psychiatric exam: Present: normal affect, normal mood - Skin Skin exam: Present: normal color, warm, dry, intact Results - Labs CBC & BMP: 10/29/16 05:39 10/29/16 05:39 Lab Results: I have reviewed the past 24 hour labs
[2016-10-30] MEDS ORDERED: LIDOCAINE 2% 5 ML VIAL ONE (11:20)
[2016-10-30] MEDS ORDERED: PROPOFOL 200 MG/20 ML VIAL IV ONE (11:20)
--- NOTE | 2016-10-30 11:31 | History and Physical Update ---
History and Physical Update - Physical Exam Mental Status: alert and oriented Heart: regular rate and rhythm Lung: clear to auscultation Abdomen: within normal limits Vitals: within normal limits
--- NOTE | 2016-10-30 11:34 | Operative Note ---
Date of procedure: 10/30/16 Pre-op diagnosis: Abnormal CT of the small bowel Procedure: EGD 56-year-old female who has had persistent complaints of nausea and vomiting with abnormal CT of the small bowel suggestive of enteritis with small bowel obstruction now for EGD Informed consent was obtained for the patient She was sedated with MAC anesthesia per anesthesia protocol. Patient placed left lateral decubitus position the Olympus flexible video upper endoscope was inserted oral cavity under direct vision the esophagus intubated findings: Esophagus-normal proximal mid esophageal mucosa. In the distal esophagus there is small hiatal hernia. No significant esophagitis, stricture or varices are seen. Stomach-normal insufflation normal mucosa to direct retroflexed views of the body, fundus, cardia and antrum the stomach. Pylorus-normal Duodenum-normal for the bulb and duodenum to the proximal jejunum no evidence of inflammation or ulceration was identified. The procedure terminated placed our procedure well she is discharged recovery in good condition Postop diagnosis: 1. Gastroesophageal reflux disease-continue PPI treatment antireflux precautions 2. Question of partial small bowel obstruction repeat CT if symptoms worsen. Anesthesia: [facility] [place] Surgeon / Physician: Wilmer Champagne Estimated blood loss: none Specimens: none sent Condition: stable Disposition: post procedure unit Results - Labs CBC & BMP: 10/29/16 05:39 10/29/16 05:39 Discharge Plan - Discharge Medications No Action Multivitamin (Centrum) [Centrum Tab] 1 tablet PO DAILY - Follow Up or Referral - Forms/Instructions
--- NOTE | 2016-10-30 11:39 | Anesthesia ---
Anesthesia Post OP - Post Ansesthetic Evaluation Patient seen in post op: Yes Resp: within normal limits CV: within normal limits Mental: within normal limits Temp: within normal limits [id number]: within normal limits Nausea and Vomiting: within normal limits Pain: within normal limits
[2016-10-31] MEDS: MULTIVITAMIN (CENTRUM) TABLET PO SCH (09:06)
[2016-10-31] MEDS: ENOXAPARIN 40 MG/0.4 ML SYRINGE SUBCUT SCH (09:06)
[2016-10-31] MEDS: PANTOPRAZOLE 40 MG TABLET PO SCH (09:06)
--- NOTE | 2016-10-31 09:29 | Gastrointestinal Progress Note ---
<WilburKatalina Parrish - Last Filed: 10/31/16 09:23> Assessment and Plan (1) Abdominal pain Status: Acute Assessment and plan: 10/31-No reports of pain, N/V. No BM x 7 days. No flatus. EGD findings noted. No change on KUB. Diet advanced. Continue to monitor. Plan and addendum to follow by Dr Champagne. 10/26-Pain improved at present time. No N/V. NO BM or flatus. Tolerating clear liquids at present. KUB shows minimal change in SBO. Plan and addendum to follow by Dr Champagne. Current Visit: Yes Gastroenterology - PN: Subj Interval history: CC: GERD, SBO Pt is awake and alert, sitting up in chair. States that her diet was advanced and she is tolerating solids at present time. She is having some "bubbling" in her abdomen however no flatus or bowel movement, states it has been a week today since her last movement. She has hyperactive bowel sounds, no tenderness. She denies any nausea or vomiting. EGD finding noted with GERD. KUB results on yesterday show mild distention of small bowel in LUQ, mid abdomen and lower abdomen at 3.8cm. Abdomen is soft, nontender. ROS: Denies SOB or chest pain Exam (Progress Note) - Constitutional Vitals: Period Temp Pulse Resp BP Sys/Alcaraz Pulse Ox Last 24 Hr 98.1 F-98.8 F 54-83 15-19 106-166/61-89 95-100 General appearance: normal weight, no acute distress - Head Head exam: Present: normal inspection, normocephalic - Eye Eye exam: Present: other (lids and conjunctiva unremarkable). Absent: scleral icterus - ENT ENT exam: Present: normal exam, normal oropharynx - Neck Neck exam: Present: normal inspection - Respiratory Respiratory exam: Present: clear to auscultation bilaterally. Absent: rales, rhonchi, wheezes - Cardiovascular Cardiovascular exam: Present: regular rate and rhythm. Absent: diastolic murmur , JVD, systolic murmur - GI/Abdominal GI/Abdominal exam: Present: hyperactive bowel sounds, soft. Absent: ascites, distended, mass, organomegaly, tenderness - Extremities Exam Extremities exam: Present: normal inspection, full ROM - Back Exam Back exam: Present: normal inspection - Neurological Exam Neurological exam: Present: alert, oriented X3 - Psychiatric Psychiatric exam: Present: normal affect, normal mood - Skin Skin exam: Present: normal color, warm, dry Results - Labs CBC & BMP: 10/29/16 05:39 10/29/16 05:39 Lab Results: I have reviewed the past 24 hour labs - Diagnostic Findings Procedure: KUB x-ray: report reviewed by me <Wilmer Champagne - Last Filed: 10/31/16 23:05> Exam (Progress Note) - Constitutional Vitals: Period Temp Pulse Resp BP Sys/Alcaraz Pulse Ox Last 24 Hr 98.1 F-98.3 F 55-83 17-18 116-135/62-75 96-100 Results - Labs CBC & BMP: 10/29/16 05:39 10/29/16 05:39
--- NOTE | 2016-10-31 12:15 | General Surgery Progress Note ---
Assessment and Plan (1) Partial small bowel obstruction Status: Suspected Assessment and plan: She has symptoms that could be consistent with partial small bowel obstruction and may be partially secondary to the findings seen on CT scan. She currently denies nausea or vomiting and is had passage of bowel movement. Her abdomen is nondistended and nontender this point. I would manage this conservatively as you were doing however if she fails to resolve then we may want to repeat her CT scan. I do not see evidence of complete bowel obstruction or surgical abdomen at this time 10/29: Her KUB still shows a picture consistent with partial small bowel obstruction though some contrast is moved into the cecum. She has no abdominal complaints today. She denies nausea or vomiting and is taking some liquids. She denies abdominal pain or abdominal cramping. She has not had a bowel movement. I have a hard time encouraging surgical intervention in light of the fact that she has no pain or abdominal symptoms. I would continue with conservative treatment and I think he can advance her diet. I will continue to follow. If she fails to improve we can repeat her CT scan. 10/30: She had changes on her KUB consistent with partial bowel obstruction. The patient is essentially asymptomatic this point. She has no abdominal cramping or any abdominal pain or distention. She is had no nausea or vomiting. I'm going to try a by mouth diet today. We will try liquids first and see if we can advance her diet. 28: She had her diet advanced and lunch today she is now complaining of abdominal distention and nausea and some mild cramping. Appears that she still has findings of ileus or partial bowel obstruction. I think that we need to repeat her CT scan and see if this appears changed. I did explain to her that she may require operative intervention. Current Visit: Yes Subjective Patient reports: Present: feels better, still having pain, no flatus, no bowel movement, nausea. Absent: tolerating a regular diet, vomiting, fever Exam - Constitutional Vitals: Period Temp Pulse Resp BP Sys/Alcaraz Pulse Ox Last 24 Hr 98.1 F-98.8 F 63-83 16-19 119-152/62-87 96-100 General appearance: no acute distress - Eye Eye exam: Absent: scleral icterus - ENT Mouth exam: Present: normal voice - Respiratory Respiratory exam: Absent: accessory muscle use - GI/Abdominal GI/Abdominal exam: Present: distended, soft. Absent: guarding, tenderness, rebound Results - Labs CBC & BMP: 10/29/16 05:39 10/29/16 05:39
--- NOTE | 2016-10-31 16:06 | Hospitalist Progress Note ---
Assessment and Plan (1) Partial small bowel obstruction Status: Acute Assessment and plan: The patient has symptoms consistent with small bowel obstruction. CT scan for follow-up has been ordered for tomorrow morning Current Visit: Yes Hospitalist: Subjective Interval history: The patient has continued bloating and abdominal colicky discomfort. Dr. Tarango has ordered a CT scan to reevaluate abdomen. Exam - Constitutional Vitals: Period Temp Pulse Resp BP Sys/Alcaraz Pulse Ox Last 24 Hr 98.1 F-98.8 F 55-83 17-19 116-129/62-72 96-100 Exam: Constitutional System: Mild distress. No tremulousness. Head: Normocephalic, atraumatic. Ears, Nose and Throat System: No evidence of Otitis or Mastoiditis. No epistaxis or discharge Eyes System: Pupils equal, round, and reactive. Extraocular muscles intact. Neck: Supple, without adenopathy, No jugular venous distention. No thyromegaly , neck mass, or prior surgery apparent. Respiratory System: Chest clear to auscultation. Cardiovascular System: Heart with regular rate and rhythm. No murmur. GI System: Abdomen soft, mild to moderate generalized tender. Tinkling bowel sounds present. Musculoskeletal System: limbs with no pedal edema. Full distal pulses. Neurological System: No discernable sensory deficit. No aphasia Psychiatric System: Conversation is rational Results - Labs CBC & BMP: 10/29/16 05:39 10/29/16 05:39
[2016-11-01 06:51] LABS: Basophils % 0.2 % (0.0-0.8); Eosinophils # 0.1 10*3/uL (0.0-0.87); Eosinophils % 1.1 % (0.00-10.9); Hematocrit 35.1 VOL% (35.7-47.0); Hemoglobin 11.7 GM/DL (12.0-16.0); Immature Granulocytes % 0.7 %; Immature Granulocytes Absolute 0.03 #; Lymphocytes # 1.7 10*3/uL (1.4-4.0); Lymphocytes % 37.7 % (21.3-54.2); Mean Corpuscular HGB Conc 33.3 GM/DL (32-36); Mean Corpuscular Hemoglobin 26 PG (27-34); Mean Corpuscular Volume 79.2 FL (87-102); Monocytes # 0.5 10*3/uL (0.11-0.8); Monocytes % 10.3 % (1.7-12.7); Neutrophils # 2.3 10*3/uL (1.4-7.4); Platelet Count 189 T/CUMM (130-400); Red Blood Count 4.43 MC/CUMM (3.8-5.5); Red Cell Distribution Width 14.1 % (9.3-17.3); White Blood Count 4.6 T/CUMM (4-12)
--- NOTE | 2016-11-01 06:58 | General Surgery Progress Note ---
Assessment and Plan (1) Partial small bowel obstruction Status: Acute Assessment and plan: She has symptoms that could be consistent with partial small bowel obstruction and may be partially secondary to the findings seen on CT scan. She currently denies nausea or vomiting and is had passage of bowel movement. Her abdomen is nondistended and nontender this point. I would manage this conservatively as you were doing however if she fails to resolve then we may want to repeat her CT scan. I do not see evidence of complete bowel obstruction or surgical abdomen at this time 10/29: Her KUB still shows a picture consistent with partial small bowel obstruction though some contrast is moved into the cecum. She has no abdominal complaints today. She denies nausea or vomiting and is taking some liquids. She denies abdominal pain or abdominal cramping. She has not had a bowel movement. I have a hard time encouraging surgical intervention in light of the fact that she has no pain or abdominal symptoms. I would continue with conservative treatment and I think he can advance her diet. I will continue to follow. If she fails to improve we can repeat her CT scan. 10/30: She had changes on her KUB consistent with partial bowel obstruction. The patient is essentially asymptomatic this point. She has no abdominal cramping or any abdominal pain or distention. She is had no nausea or vomiting. I'm going to try a by mouth diet today. We will try liquids first and see if we can advance her diet. : She had her diet advanced and lunch today she is now complaining of abdominal distention and nausea and some mild cramping. Appears that she still has findings of ileus or partial bowel obstruction. I think that we need to repeat her CT scan and see if this appears changed. I did explain to her that she may require operative intervention. 11/01: She continues to have vague cramping and nausea but not much pain. Her abdomen is minimally distended and I reviewed her CT scan films this morning but we do not have radiology report. This continues to look like bowel obstruction to me and she has not responded to conservative treatment. I think that we are going to need operative intervention. I will confirm these findings with radiology however I had already discussed with her the fact that we may need to proceed on to surgery. The etiology of her obstruction is unclear but hopefully we can establish a diagnosis at the time of surgery. Current Visit: Yes Subjective Patient reports: Present: pain is less, no flatus, no bowel movement, nausea. Absent: vomiting, shortness of breath, fever Exam - Constitutional Vitals: Period Temp Pulse Resp BP Sys/Alcaraz Pulse Ox Last 24 Hr 98.1 F-98.8 F 55-83 17-18 116-135/64-75 96-99 General appearance: no acute distress - Eye Eye exam: Absent: scleral icterus - Respiratory Respiratory exam: Absent: accessory muscle use - GI/Abdominal GI/Abdominal exam: Present: soft. Absent: distended, tenderness, rebound Results - Labs CBC & BMP: 11/01/16 06:40 10/29/16 05:39 Lab Results: I have reviewed the past 24 hour labs - Diagnostic Findings Procedure: CT Abdomen and Pelvis: image reviewed by me
[2016-11-01 07:15] LABS: Hypochromasia 1+; Microcytosis 1+; Ovalocytes Slight; Platelet Estimate Adequate
[2016-11-01 07:20] LABS: Calcium 8.6 MG/DL (8.5-10.1); Magnesium 2.2 MG/DL (1.8-2.4); Osmolality,Calculated 274.5 MOS/KG (273-304); Potassium 3.6 MMOL/L (3.5-5.1)
[2016-11-01] MEDS: ENOXAPARIN 40 MG/0.4 ML SYRINGE SUBCUT SCH (08:16)
[2016-11-01] MEDS: MULTIVITAMIN (CENTRUM) TABLET PO SCH (08:16)
[2016-11-01] MEDS: PANTOPRAZOLE 40 MG TABLET PO SCH (08:16)
--- NOTE | 2016-11-01 09:18 | CT Report ---
History: Small bowel obstruction Date: 11/01/2016 Study: CT abdomen and pelvis with IV contrast Comparison exam: No remote CT scan Technique: Spiral CT sections were obtained from the lung bases to the pubic symphysis following oral contrast and 100 mL Omnipaque 350 IV. Total DLP measures 988.6 mGy*cm. CT abdomen: There is minimal bilateral pleural effusion. There is some minimal dependent atelectasis in the lung bases. There is mild diffuse fatty infiltration of the liver. The liver, bile ducts, pancreas, adrenal glands, gallbladder, and kidneys are normal otherwise. There is bilateral renal excretion without hydronephrosis. There is a small hiatal hernia. There is no aortic aneurysm. There is no lymphadenopathy by short axis diameter criteria. There is no evidence of appendicitis. There is mild free fluid in the right lower quadrant. There is evidence of partial small bowel obstruction. There is a discrete small bowel transition zone in the right lower quadrant/upper right pelvis on axial images 120 through 125. There is abrupt change in caliber of small bowel at the level of some adjacent extrinsic soft tissue density measuring up to 3.1 cm. This soft tissue density may represent adherent ovarian tissue, but is nonspecific. Normal caliber terminal ileum is noted. CT pelvis: The uterus is not seen compatible with prior hysterectomy. There is mild free fluid in the pelvis. There is no palpable lymphadenopathy. Impression: There is small bowel obstruction with abrupt small bowel transition zone in the right lower quadrant/right upper pelvis. This abuts a 3.1 cm area of amorphous soft tissue density which could represent adherent ovarian tissue, but is nonspecific. There is some free fluid in the right lower quadrant and right pelvis. PROCEDURE INTERPRETED AT [facility] [place] DEPARTMENT OF RADIOLOGY Final Report Signed by: Dr. Yue Wallis
--- NOTE | 2016-11-01 10:13 | Gastrointestinal Progress Note ---
<WilburKatalina Parrish - Last Filed: 11/01/16 10:10> Assessment and Plan (1) Abdominal pain Status: Acute Assessment and plan: 11/01-N/V this morning following intake of contrast. CT of abd results noted. For laparoscopic surgery today with Dr Tarango. Plan and addendum to follow by DR Champagne. 10/31-No reports of pain, N/V. No BM x 7 days. No flatus. EGD findings noted. No change on KUB. Diet advanced. Continue to monitor. Plan and addendum to follow by Dr Champagne. 10/26-Pain improved at present time. No N/V. NO BM or flatus. Tolerating clear liquids at present. KUB shows minimal change in SBO. Plan and addendum to follow by Dr Champagne. Current Visit: Yes Gastroenterology - PN: Subj Interval history: CC: SBO Pt is seen, up on side of bed. States she is not feeling well today. She drank the contrast for the CT however states she threw it up shortly afterwards. She is more symptomatic today with nausea and some cramping. CT of abdomen shows small bowel obstruction with abrupt transition zone in RLQ that abuts 3.1cm area of soft tissue with free fluid in pelvis. She has been seen by Dr Best and is for laparascopy today with possible laparatomy. Abdomen is soft, distended, hypoactive bowel sounds. ROS: No acute distress Exam (Progress Note) - Constitutional Vitals: Period Temp Pulse Resp BP Sys/Alcaraz Pulse Ox Last 24 Hr 97.0 F-98.8 F 55-60 17-18 116-135/64-75 96-99 General appearance: normal weight, no acute distress - Head Head exam: Present: normal inspection, normocephalic - Eye Eye exam: Present: other (lids and conjunctiva unremarkable). Absent: scleral icterus - ENT ENT exam: Present: normal exam, normal oropharynx - Neck Neck exam: Present: normal inspection - Respiratory Respiratory exam: Present: clear to auscultation bilaterally. Absent: rales, rhonchi, wheezes - Cardiovascular Cardiovascular exam: Present: regular rate and rhythm. Absent: diastolic murmur , JVD, systolic murmur - GI/Abdominal GI/Abdominal exam: Present: distended, hypoactive bowel sounds, soft. Absent: ascites, mass, organomegaly, tenderness - Extremities Exam Extremities exam: Present: normal inspection, full ROM - Back Exam Back exam: Present: normal inspection - Neurological Exam Neurological exam: Present: alert - Psychiatric Psychiatric exam: Present: normal affect, normal mood - Skin Skin exam: Present: normal color, warm, dry Results - Labs CBC & BMP: 11/01/16 06:40 11/01/16 06:40 Lab Results: I have reviewed the past 24 hour labs <Wilmer Champagne - Last Filed: 11/01/16 17:09> Exam (Progress Note) - Constitutional Vitals: Period Temp Pulse Resp BP Sys/Alcaraz Pulse Ox Last 24 Hr 97.0 F-98.8 F 58-73 17-18 117-143/64-80 94-98 Results - Labs CBC & BMP: 11/01/16 06:40 11/01/16 06:40
--- NOTE | 2016-11-01 12:29 | Hospitalist Progress Note ---
Assessment and Plan (1) Partial small bowel obstruction Status: Acute Assessment and plan: The patient has symptoms consistent with small bowel obstruction. Dr. Cruz plans for surgery later today. Current Visit: Yes Hospitalist: Subjective Interval history: The patient has continued bowel obstruction symptoms today. CT scan confirms an obstruction near the cecum. Dr. Tarango is planning surgery later today Exam - Constitutional Vitals: Period Temp Pulse Resp BP Sys/Alcaraz Pulse Ox Last 24 Hr 97.0 F-98.8 F 58-73 17-18 117-143/64-79 96-99 Exam: Constitutional System: Moderate distress. No tremulousness. Head: Normocephalic, atraumatic. Ears, Nose and Throat System: No evidence of Otitis or Mastoiditis. No epistaxis or discharge Eyes System: Pupils equal, round, and reactive. Extraocular muscles intact. Neck: Supple, without adenopathy, No jugular venous distention. No thyromegaly , neck mass, or prior surgery apparent. Respiratory System: Chest clear to auscultation. Cardiovascular System: Heart with regular rate and rhythm. No murmur. GI System: Abdomen soft, mild to moderate generalized tender. Tinkling bowel sounds present. Musculoskeletal System: limbs with no pedal edema. Full distal pulses. Neurological System: No discernable sensory deficit. No aphasia Psychiatric System: Conversation is rational Results - Labs CBC & BMP: 11/01/16 06:40 11/01/16 06:40 Lab Results: I have reviewed the past 24 hour labs Quality Measures - VTE Contraindication to Pharmacological VTE Prophylaxis: High Risk of Bleeding
[2016-11-01] MEDS: ONDANSETRON 4 MG/2 ML VIAL IV PRN (14:19)
[2016-11-01] MEDS ORDERED: BUPIVACAINE 0.5% /EPI 10 ML VIAL ONE (16:24)
[2016-11-01] MEDS ORDERED: LIDOCAINE 1%/EPI INJ 20 ML VIAL ONE (16:24)
[2016-11-01] MEDS ORDERED: BUPIVACAINE MPF 0.25% /EPI 30 ML VIAL ONE (16:25)
[2016-11-01] MEDS ORDERED: ONDANSETRON 4 MG/2 ML VIAL ONE (17:04)
[2016-11-01] MEDS ORDERED: ROCURONIUM 100 MG/10 ML VIAL IV ONE (17:04)
[2016-11-01] MEDS ORDERED: LIDOCAINE 2% 5 ML VIAL ONE (17:04)
[2016-11-01] MEDS ORDERED: PROPOFOL 200 MG/20 ML VIAL IV ONE (17:04)
[2016-11-01] MEDS ORDERED: SUCCINYLCHOLINE 200 MG/10 ML VIAL ONE (17:04)
--- NOTE | 2016-11-01 18:53 | Operative Note ---
Date of procedure: 11/01/16 Pre-op diagnosis: small bowel obstruction Post-op diagnosis: same Procedure: Laparoscopic converted to partially open small bowel enteroclysis with segmental small bowel resection and anastomosis #2 biopsy of right pelvic sidewall mass Findings and technique: After informed consent was obtained the patient was brought the operating room and placed in spine position. After successful induction with general anesthesia the patient's abdomen was prepped and draped in usual sterile fashion. Local anesthesia was infiltrated the umbilicus where small incision was made and an open technique used during the perineal cavity under direct vision. Oliver cannula was inserted and pneumoperitoneum was established. Camera was inserted and an additional 11 mm port was placed in the upper midline under camera vision and an additional 5 mm port was placed in the lower midline under camera vision. Exploration of the abdomen was carried out with the patient was noted to have a large amount of dilated small bowel and then at the mid to distal jejunum there was a loop of bowel passing under several thick adhesive bands between portion of the ileum and the right pelvic sidewall. These bands were lysed and there were still bowel densely adhesed to the right pelvic sidewall. I dissected this laparoscopically but reached a point where I did not feel I could safely proceed further. I then connected the mid line port sites in the mid lower midline and the umbilical region. Through this small incision was then able to dissect the small bowel free as I lifted the small bowel up into the incision and was very raw and deserosalized over about a 5 cm segment and I elected to's resect this segment. The bowel was resected between JOSE MANUEL stapling devices and the mesentery divided between clamps and ties. A stapled anastomosis performed without tension and the bowel appeared to be well-perfused. The openings in the ends of the bowel closed the TA 60 stapling device and the mesenteric defect closed with interrupted silk suture. Prior to performing the anastomosis I decompressed the proximal dilated bowel with a suction cannula removing a large amount of gas and liquid. The bowel was returned to its normal position the area in the pelvic sidewall was inspected and this appeared to correlate with the findings seen on CT scan and this appeared to represent a retention cyst and maybe an old retained ovarian remnant. This area was biopsied. This appeared benign. The area was inspected for bleeding and none was noted with the balance normal position and abdomen was irrigated and suctioned dry. Sponge and instrument counts were the midline fascia was closed with running #1 PDS suture and the skin closed with skin clips. She appeared to tolerate the procedure well and she did receive perioperative IV antibiotics as well as DVT prophylaxis. She had no apparent complications and appeared to tolerate the procedure well. Anesthesia: GETA, local Surgeon / Physician: Isaias Tarango III. Estimated blood loss: other (50ml) Specimens: other (small bowel segment and pelvic sidewall mass biopsy) Condition: stable Disposition: PACU Results - Labs CBC & BMP: 11/01/16 06:40 11/01/16 06:40 Discharge Plan - Discharge Medications No Action Multivitamin (Centrum) [Centrum Tab] 1 tablet PO DAILY - Follow Up or Referral - Forms/Instructions
[2016-11-01] MEDS ORDERED: fentaNYL 100 MCG/2 ML VIAL ONE ×2 (19:03)
[2016-11-01] MEDS ORDERED: MIDAZOLAM 2 MG/2 ML VIAL ONE (19:03)
[2016-11-01] MEDS ORDERED: SEVOFLURANE 1 UNIT/15 MINUTE INH ONE (19:03)
[2016-11-01] MEDS ORDERED: LACTATED RINGERS 1,000 ML IV ONE (19:03)
[2016-11-01] MEDS ORDERED: ONDANSETRON 4 MG/2 ML VIAL IV PRN (19:15)
[2016-11-01] MEDS ORDERED: HYDROmorphone 2 MG/1 ML VIAL IV PRN (19:15)
[2016-11-01 19:21] LABS: Apearance,Urine Slightly Hazy (Clear); Bilirubin,Urine Negative (Negative); Blood, Urine Moderate mg/dL (Negative); Glucose,Urine (UA) Negative (Negative); Ketones,Urine 80 mg/dL (Negative); Mucus,Urine Occasional /LPF (Occasional); Nitrite,Urine Negative (Negative); Protein,Urine Negative; RBC,Urine 10 /HPF (0-4); Squamous Epithelial Cell,Urine Occasional /HPF (0-10); Urine Color Yellow (Yellow); Urine Specific Gravity 1.029 (1.001-1.035); Urine Urobilinogen < 2.0 EU/DL (0.2-1.0); WBC,Urine <1 /HPF (0-6)
[2016-11-01] MEDS ORDERED: MORPHINE PCA 30 MG/30 ML SYRINGE IV ONE (19:24)
[2016-11-01] MEDS ORDERED: LACTATED RINGERS 1,000 ML IV SCH (19:30)
[2016-11-01] MEDS: MORPHINE PCA 30 MG/30 ML SYRINGE IV SCH (19:39)
--- NOTE | 2016-11-01 20:13 | Anesthesia ---
Anesthesia Post OP - Post Ansesthetic Evaluation Patient seen in post op: Yes Resp: within normal limits CV: within normal limits Mental: within normal limits Temp: within normal limits [id number]: within normal limits Nausea and Vomiting: within normal limits Pain: within normal limits
[2016-11-01] MEDS: DEXTROSE 5% LACTATED RINGERS 1,000 ML IV SCH (20:18)
[2016-11-01 20:21] LABS: Hematocrit 38.3 VOL% (35.7-47.0); Hemoglobin 12.6 GM/DL (12.0-16.0)
[2016-11-02 06:15] LABS: Hematocrit 34.6 VOL% (35.7-47.0); Hemoglobin 11.5 GM/DL (12.0-16.0)
[2016-11-02 06:17] LABS: Basophils % 0.1 % (0.0-0.8); Eosinophils % 0.5 % (0.00-10.9); Hemoglobin 11.3 GM/DL (12.0-16.0); Immature Granulocytes % 0.4 %; Immature Granulocytes Absolute 0.03 #; Lymphocytes # 1.8 10*3/uL (1.4-4.0); Lymphocytes % 23.7 % (21.3-54.2); Mean Corpuscular HGB Conc 33.2 GM/DL (32-36); Mean Corpuscular Hemoglobin 26 PG (27-34); Mean Corpuscular Volume 78.5 FL (87-102); Mean Platelet Volume 11.2 FL (9.6-12.0); Monocytes # 0.5 10*3/uL (0.11-0.8); Monocytes % 6.3 % (1.7-12.7); Neutrophils # 5.3 10*3/uL (1.4-7.4); Platelet Count 195 T/CUMM (130-400); Red Blood Count 4.33 MC/CUMM (3.8-5.5); Red Cell Distribution Width 14.3 % (9.3-17.3); White Blood Count 7.7 T/CUMM (4-12)
[2016-11-02 06:50] LABS: Potassium 4.1 MMOL/L (3.5-5.1)
[2016-11-02] MEDS: MULTIVITAMIN (CENTRUM) TABLET PO SCH (09:08)
[2016-11-02] MEDS: PANTOPRAZOLE 40 MG TABLET PO SCH (09:08)
--- NOTE | 2016-11-02 09:08 | Gastrointestinal Progress Note ---
<WilburKatalina Parrish - Last Filed: 11/02/16 09:06> Assessment and Plan (1) Abdominal pain Status: Acute Assessment and plan: 11/02-No N/V, post operative abd pain, controlled. Operative findings noted. Remains NPO at present time. Plan and addendum to follow by Dr Champagne 11/01-N/V this morning following intake of contrast. CT of abd results noted. For laparoscopic surgery today with Dr Tarango. Plan and addendum to follow by DR Champagne. 10/31-No reports of pain, N/V. No BM x 7 days. No flatus. EGD findings noted. No change on KUB. Diet advanced. Continue to monitor. Plan and addendum to follow by Dr Champagne. 10/26-Pain improved at present time. No N/V. NO BM or flatus. Tolerating clear liquids at present. KUB shows minimal change in SBO. Plan and addendum to follow by Dr Champagne. Current Visit: Yes Gastroenterology - PN: Subj Interval history: CC: Small bowel obstruction Pt is awake, alert, lying in bed with spouse at side. Pt states she is having less discomfort today than prior to surgery with mild post operative pain. She denies any nausea or vomiting. NG tube is patent at this time. She remains NPO. She is using her ORE TESTER minimally at present. No reports of flatus. Abdomen is less distended, tender to palpation. ROS: Denies SOB or chest pain Exam (Progress Note) - Constitutional Vitals: Period Temp Pulse Resp BP Sys/Alcaraz Pulse Ox Last 24 Hr 98 F-99.0 F 66-81 14-21 100-163/56-80 93-100 General appearance: normal weight, no acute distress - Head Head exam: Present: normal inspection, normocephalic - Eye Eye exam: Present: other (lids and conjunctiva unremarkable). Absent: scleral icterus - ENT ENT exam: Present: normal exam, normal oropharynx - Neck Neck exam: Present: normal inspection - Respiratory Respiratory exam: Present: clear to auscultation bilaterally. Absent: rales, rhonchi, wheezes - Cardiovascular Cardiovascular exam: Present: regular rate and rhythm. Absent: diastolic murmur , JVD, systolic murmur - GI/Abdominal GI/Abdominal exam: Present: hypoactive bowel sounds, tenderness, soft. Absent: ascites, distended, mass, organomegaly - Extremities Exam Extremities exam: Present: normal inspection, full ROM - Back Exam Back exam: Present: normal inspection - Neurological Exam Neurological exam: Present: alert, oriented X3 - Psychiatric Psychiatric exam: Present: normal affect, normal mood - Skin Skin exam: Present: normal color, warm, dry Results - Labs CBC & BMP: 11/02/16 05:48 11/02/16 05:48 Lab Results: I have reviewed the past 24 hour labs <Wilmer Champagne - Last Filed: 11/02/16 13:33> Exam (Progress Note) - Constitutional Vitals: Period Temp Pulse Resp BP Sys/Alcaraz Pulse Ox Last 24 Hr 98 F-99.0 F 66-81 14-21 100-163/56-80 93-100 Results - Labs CBC & BMP: 11/02/16 10:53 11/02/16 05:48
--- NOTE | 2016-11-02 09:15 | Event Note ---
Postoperative day #1 small bowel obstruction with small bowel resection. She feels much better. She does not have the cramping pain and nausea. She is having minimal nasogastric tube output we will discontinue her tube. Her abdomen is benign. We will get her up out of bed and get her [place] cath out. Her pathology is pending but I suspect that this was benign adhesions.
[2016-11-02] MEDS: ENOXAPARIN 40 MG/0.4 ML SYRINGE SUBCUT SCH (10:21)
--- NOTE | 2016-11-02 11:02 | Hospitalist Progress Note ---
Assessment and Plan (1) Partial small bowel obstruction Status: Acute Assessment and plan: Postoperative day #1 laparotomy. Current Visit: Yes Hospitalist: Subjective Interval history: The patient has less abdominal distention. NG tube functional. Postoperative day #1 lysis of adhesions with end and reanastomosis of small bowel Exam - Constitutional Vitals: Period Temp Pulse Resp BP Sys/Alcaraz Pulse Ox Last 24 Hr 98 F-99.0 F 66-81 14-21 100-163/56-80 93-100 Exam: Constitutional System: Minimal distress. No tremulousness. Head: Normocephalic, atraumatic. Ears, Nose and Throat System: No evidence of Otitis or Mastoiditis. No epistaxis or discharge Eyes System: Pupils equal, round, and reactive. Extraocular muscles intact. Neck: Supple, without adenopathy, No jugular venous distention. No thyromegaly , neck mass, or prior surgery apparent. Respiratory System: Chest clear to auscultation. Cardiovascular System: Heart with regular rate and rhythm. No murmur. GI System: Abdomen soft, mild to moderate generalized tender. Tinkling bowel sounds present. Musculoskeletal System: limbs with no pedal edema. Full distal pulses. Neurological System: No discernable sensory deficit. No aphasia Psychiatric System: Conversation is rational Results - Labs CBC & BMP: 11/02/16 05:48 11/02/16 05:48 Lab Results: I have reviewed the past 24 hour labs Quality Measures - VTE Contraindication to Pharmacological VTE Prophylaxis: High Risk of Bleeding
[2016-11-02 11:07] LABS: Hematocrit 33.6 VOL% (35.7-47.0); Hemoglobin 11.1 GM/DL (12.0-16.0)
[2016-11-02] MEDS: DEXTROSE 5% LACTATED RINGERS 1,000 ML IV SCH ×3 (14:29→22:32)
[2016-11-02] MEDS: MORPHINE PCA 30 MG/30 ML SYRINGE IV SCH (19:45)
[2016-11-03] MEDS: DEXTROSE 5% LACTATED RINGERS 1,000 ML IV SCH ×3 (06:18→21:20)
[2016-11-03] MEDS: MULTIVITAMIN (CENTRUM) TABLET PO SCH (08:41)
[2016-11-03] MEDS: ENOXAPARIN 40 MG/0.4 ML SYRINGE SUBCUT SCH (08:42)
[2016-11-03] MEDS: PANTOPRAZOLE 40 MG TABLET PO SCH (08:42)
--- NOTE | 2016-11-03 09:42 | Event Note ---
11/03/2016 Patient is status post small bowel resection for small bowel obstruction and is basically looking pretty good with minimal to moderate discomfort. Abdomen is soft there's few bowel sounds present at this time. No distention noted. Incisions look clean and dry. Will let her sit some water and have some hard candy and chewing gum but now encouraged her to get up and move around and ambulate.
--- NOTE | 2016-11-03 11:33 | Hospitalist Progress Note ---
Assessment and Plan (1) Partial small bowel obstruction Status: Acute Assessment and plan: Postoperative day #2 laparotomy. Current Visit: Yes Hospitalist: Subjective Interval history: The patient is postoperative day #3 from laparotomy with small bowel resection. The patient was ambulating the hallway and the NG tube is out. The patient is taking a few sips of water and is hungry. No flatus at this time Exam - Constitutional Vitals: Period Temp Pulse Resp BP Sys/Alcaraz Pulse Ox Last 24 Hr 98.6 F-100 F 77-86 18-20 112-120/61-68 94-99 Exam: Constitutional System: Minimal distress. No tremulousness. Head: Normocephalic, atraumatic. Ears, Nose and Throat System: No evidence of Otitis or Mastoiditis. No epistaxis or discharge Eyes System: Pupils equal, round, and reactive. Extraocular muscles intact. Neck: Supple, without adenopathy, No jugular venous distention. No thyromegaly , neck mass, or prior surgery apparent. Respiratory System: Chest clear to auscultation. Cardiovascular System: Heart with regular rate and rhythm. No murmur. GI System: Abdomen soft, mild to moderate generalized tender. Tinkling bowel sounds present. Musculoskeletal System: limbs with no pedal edema. Full distal pulses. Neurological System: No discernable sensory deficit. No aphasia Psychiatric System: Conversation is rational Results - Labs CBC & BMP: 11/02/16 10:53 11/02/16 05:48 Lab Results: I have reviewed the past 24 hour labs Quality Measures - VTE Contraindication to Pharmacological VTE Prophylaxis: High Risk of Bleeding
[2016-11-03] MEDS: LEVOFLOXACIN INJ 500 MG in PREMIX 1 EACH IV SCH (14:49)
[2016-11-04] MEDS: DEXTROSE 5% LACTATED RINGERS 1,000 ML IV SCH ×2 (05:28→12:42)
[2016-11-04] MEDS: MORPHINE PCA 30 MG/30 ML SYRINGE IV SCH ×2 (08:18→22:14)
[2016-11-04] MEDS: PANTOPRAZOLE 40 MG TABLET PO SCH (08:30)
[2016-11-04] MEDS: MULTIVITAMIN (CENTRUM) TABLET PO SCH (08:30)
[2016-11-04] MEDS: ENOXAPARIN 40 MG/0.4 ML SYRINGE SUBCUT SCH (08:30)
--- NOTE | 2016-11-04 10:17 | Event Note ---
11/04/2016. Patient is progressing fairly slowly at this time. Still no movement or flatus but hypoactive bowel sounds are present. Incision looks clean and dry. She just does not open up well but has not had any nausea. We will attempt to give her some clear liquids and see if this stimulates things and get something moving.
--- NOTE | 2016-11-04 13:34 | Hospitalist Progress Note ---
Assessment and Plan (1) Partial small bowel obstruction Status: Acute Assessment and plan: Postoperative day #3 laparotomy. Awaiting return of bowel function Current Visit: Yes Hospitalist: Subjective Interval history: The patient is postoperative day #3 from laparotomy with small bowel resection for obstruction. The patient had end-to-end anastomosis. Bowel function has not yet returned. The patient is tolerating sips of clear liquids but has not passed flatus or stool despite walker in the hallway. Exam - Constitutional Vitals: Period Temp Pulse Resp BP Sys/Alcaraz Pulse Ox Last 24 Hr 97.7 F-99.8 F 72-89 16-20 106-128/52-73 95-98 Exam: Constitutional System: Minimal distress. No tremulousness. Head: Normocephalic, atraumatic. Ears, Nose and Throat System: No evidence of Otitis or Mastoiditis. No epistaxis or discharge Eyes System: Pupils equal, round, and reactive. Extraocular muscles intact. Neck: Supple, without adenopathy, No jugular venous distention. No thyromegaly , neck mass, or prior surgery apparent. Respiratory System: Chest clear to auscultation. Cardiovascular System: Heart with regular rate and rhythm. No murmur. GI System: Abdomen soft, mild to moderate generalized tender. Tinkling bowel sounds present. Musculoskeletal System: limbs with no pedal edema. Full distal pulses. Neurological System: No discernable sensory deficit. No aphasia Psychiatric System: Conversation is rational Results - Labs CBC & BMP: 11/02/16 10:53 11/02/16 05:48 Lab Results: I have reviewed the past 24 hour labs Quality Measures - VTE Contraindication to Pharmacological VTE Prophylaxis: High Risk of Bleeding
[2016-11-04] MEDS: LEVOFLOXACIN INJ 500 MG in PREMIX 1 EACH IV SCH (14:52)
[2016-11-05] MEDS: DEXTROSE 5% LACTATED RINGERS 1,000 ML IV SCH ×3 (01:08→11:58)
[2016-11-05 07:05] LABS: Basophils % 0.2 % (0.0-0.8); Eosinophils # 0.2 10*3/uL (0.0-0.87); Eosinophils % 2.5 % (0.00-10.9); Hematocrit 30.8 VOL% (35.7-47.0); Immature Granulocytes % 0.3 %; Immature Granulocytes Absolute 0.02 #; Lymphocytes # 1.3 10*3/uL (1.4-4.0); Lymphocytes % 20.3 % (21.3-54.2); Mean Corpuscular HGB Conc 32.5 GM/DL (32-36); Mean Corpuscular Hemoglobin 26 PG (27-34); Mean Corpuscular Volume 81.1 FL (87-102); Mean Platelet Volume 11.5 FL (9.6-12.0); Monocytes # 0.6 10*3/uL (0.11-0.8); Monocytes % 9.2 % (1.7-12.7); Neutrophils # 4.3 10*3/uL (1.4-7.4); Neutrophils % 67.5 % (38.7-73.9); Platelet Count 189 T/CUMM (130-400); Red Cell Distribution Width 14.3 % (9.3-17.3); White Blood Count 6.4 T/CUMM (4-12)
[2016-11-05 07:41] LABS: Calcium 8.2 MG/DL (8.5-10.1); Magnesium 1.9 MG/DL (1.8-2.4); Potassium 3.8 MMOL/L (3.5-5.1)
[2016-11-05] MEDS ORDERED: BISACODYL 10 MG SUPP RECTAL ONE (08:00)
--- NOTE | 2016-11-05 08:00 | Event Note ---
She feels well but is not had a bowel movement or flatus. She has not had nausea or vomiting. Her abdomen is minimally distended and nontender. She is afebrile with stable vital signs. She appears to have some continued ileus which is not surprising considering the degree of dilated bowel in the chronicity of her bowel obstruction. I recommended that she chew chewing gum to help stimulate bowel motility. We will try to get her up more. Her lab work looks okay.
[2016-11-05] MEDS: ENOXAPARIN 40 MG/0.4 ML SYRINGE SUBCUT SCH (09:24)
[2016-11-05] MEDS: MULTIVITAMIN (CENTRUM) TABLET PO SCH (09:25)
[2016-11-05] MEDS: PANTOPRAZOLE 40 MG TABLET PO SCH (09:25)
--- NOTE | 2016-11-05 11:23 | Hospitalist Progress Note ---
Assessment and Plan (1) Abdominal pain Status: Acute Current Visit: Yes (2) Enteritis Status: Acute Current Visit: Yes (3) Abnormal findings on diagnostic imaging of abdomen Status: Acute Current Visit: Yes (4) Other specified counseling Status: Acute Current Visit: Yes (5) Partial small bowel obstruction Status: Acute Assessment and plan: Patient appears to be developing an ileus status post surgery. We'll check KUB in the morning. Patient needs to be up moving around. They have recommended her chewing gum to help stimulate bowel activity. Current Visit: Yes Hospitalist: Subjective Interval history: Patient has not had a bowel movement or passed gas since surgery Exam - Constitutional Vitals: Period Temp Pulse Resp BP Sys/Alcaraz Pulse Ox Last 24 Hr 98.3 F-99.2 F 65-96 14-20 98-153/61-92 97-98 General appearance: normal weight - Head Head exam: Present: normal inspection - ENT ENT exam: Present: normal exam - Neck Neck exam: Present: normal inspection - Respiratory Respiratory exam: Present: clear to auscultation bilaterally - Cardiovascular Cardiovascular exam: Present: regular rate and rhythm - GI/Abdominal GI/Abdominal exam: Present: hypoactive bowel sounds, tenderness - Extremities Exam Extremities exam: Present: normal inspection - Back Exam Back exam: Present: normal inspection - Neurological Exam Neurological exam: Present: alert - Psychiatric Psychiatric exam: Present: normal affect Results - Labs CBC & BMP: 11/05/16 06:07 11/05/16 06:07 Quality Measures - VTE Contraindication to Pharmacological VTE Prophylaxis: High Risk of Bleeding
--- NOTE | 2016-11-05 11:43 | Pathology Report from [facility] ---
ACCESSION # : [id number] PATIENT NAME : Layton Sr ORDERING DR : ROGELIO CADENA III, MD CLINICAL HX: Small bowel obstruction POST-OP DX: Same SPECIMEN INFO: #1 Small intestine #2 Pelvic side wall mass GROSS DESCRIPTION: The specimen is received in formalin labeled with the patient 's name Layton Sr in 2 parts.The first labeled #1 is a segment of small bowel measuring 6.3 x 2.0 cm. The serosa is red cunningham with adhesions present. The mucosal surface displays normal appearing folds with no mucosal lesions or perforations seen. Sections submitted 1 [id number] margins, 1 C-Serosal adhesions.#2 Consists of a fragment of dennis white tissue measuring 1.2 x 0.7 cm. Secitoned and submitted in casssette #2. DIAGNOSIS FOR LAYTON SR: #1 SMALL BOWEL, SEGMENTAL RESECTION 6.3 X 2 CM: Benign small bowel mucosa. Serosal adhesions. Early mucosal ischemic changes.#2 PELVIC SIDEWALL MASS: Fibrovascular connective tissue with chronic inflammation. No evidence of malignancy.Comment: Findings suggestive of atrophic ovary are seen. SERVICE DATE: 11/02/2016 REPORT DATE: 11/05/2016 PATHOLOGIST: Paulette Stone III, M.D. MTDD
[2016-11-05] MEDS: LEVOFLOXACIN INJ 500 MG in PREMIX 1 EACH IV SCH (15:07)
[2016-11-06 05:22] LABS: Calcium 8.1 MG/DL (8.5-10.1); Magnesium 1.7 MG/DL (1.8-2.4); Potassium 3.7 MMOL/L (3.5-5.1)
[2016-11-06] MEDS: MORPHINE PCA 30 MG/30 ML SYRINGE IV SCH ×2 (05:31→18:26)
[2016-11-06] MEDS: DEXTROSE 5% LACTATED RINGERS 1,000 ML IV SCH ×3 (05:31→18:27)
--- NOTE | 2016-11-06 07:25 | Event Note ---
She feels much better. She has had a couple of bowel movements. She is afebrile with stable vital signs. She is not had nausea or vomiting. We will advance her diet today. She may be ready for discharge by tomorrow.
[2016-11-06] MEDS: MULTIVITAMIN (CENTRUM) TABLET PO SCH (08:20)
[2016-11-06] MEDS: PANTOPRAZOLE 40 MG TABLET PO SCH (08:20)
[2016-11-06] MEDS: ENOXAPARIN 40 MG/0.4 ML SYRINGE SUBCUT SCH (08:20)
--- NOTE | 2016-11-06 09:21 | XRay Report ---
KUB. Indication: Ileus. Comparison: October 30, 2016. Surgical skin kenyatta project over the midline of the abdomen, and a surgical suture line is seen in the right lower quadrant. The heart is normal in size. The lung bases are clear. Loops of small intestine remain dilated. Dilatation up to 5.6 cm and the left mid abdomen. Contrast material is seen within a collapsed colon. Osseous structures are unremarkable. Impression: Postsurgical change, with dilated air-filled small intestine. This is most likely due to postoperative ileus, and short-term follow-up recommended. PROCEDURE INTERPRETED AT [facility] DEPARTMENT OF RADIOLOGY Final Report Signed by: Dr. Stephanie Williamson
--- NOTE | 2016-11-06 14:23 | Hospitalist Progress Note ---
Assessment and Plan (1) Abdominal pain Status: Acute Current Visit: Yes (2) Enteritis Status: Acute Current Visit: Yes (3) Abnormal findings on diagnostic imaging of abdomen Status: Acute Current Visit: Yes (4) Other specified counseling Status: Acute Current Visit: Yes (5) Partial small bowel obstruction Status: Acute Assessment and plan: Patient appears to be developing an ileus status post surgery. We'll check KUB in the morning. Patient needs to be up moving around. They have recommended her chewing gum to help stimulate bowel activity. 11/06/16 She made a significant improvement. She continues to improve she should be oh to be discharged tomorrow Current Visit: Yes Hospitalist: Subjective Interval history: Patient's feeling much better passing gas and having bowel movements Exam - Constitutional Vitals: Period Temp Pulse Resp BP Sys/Alcaraz Pulse Ox Last 24 Hr 98.0 F-99.6 F 69-84 16-18 114-125/70-73 93-98 General appearance: normal weight - Head Head exam: Present: normal inspection - ENT ENT exam: Present: normal exam - Neck Neck exam: Present: normal inspection - Respiratory Respiratory exam: Present: clear to auscultation bilaterally - Cardiovascular Cardiovascular exam: Present: regular rate and rhythm - GI/Abdominal GI/Abdominal exam: Present:active bowel sounds, tenderness - Extremities Exam Extremities exam: Present: normal inspection - Back Exam Back exam: Present: normal inspection - Neurological Exam Neurological exam: Present: alert - Psychiatric Psychiatric exam: Present: normal affect Results - Labs CBC & BMP: 11/05/16 06:07 11/06/16 04:09 Quality Measures - VTE Contraindication to Pharmacological VTE Prophylaxis: High Risk of Bleeding
[2016-11-06] MEDS: LEVOFLOXACIN INJ 500 MG in PREMIX 1 EACH IV SCH (15:05)
[2016-11-07] MEDS: PANTOPRAZOLE 40 MG TABLET PO SCH (09:01)
[2016-11-07] MEDS: MULTIVITAMIN (CENTRUM) TABLET PO SCH (09:01)
[2016-11-07] MEDS: ENOXAPARIN 40 MG/0.4 ML SYRINGE SUBCUT SCH (09:02)
--- NOTE | 2016-11-07 09:14 | Event Note ---
She looks and feels well. She is tolerating a diet and having bowel movements. Her abdomen looks good and her wound looks good. I see no sign of infection or complication. She is okay to be discharged today and I would like to see her back in the clinic in 1 week. Discharge instructions were given to the patient.
--- NOTE | 2016-11-07 09:25 | Discharge Summary ---
Hospital Course - Hospital Course Hospital Course: This patient's a 55-year-old female with abdominal pain since 2 days prior to admission. She described the pain located more the right side she said it is now diffuse 6 out of 10 at worst relieved with pain medicine in the ER but once for resolved. She stated that she had nausea and vomiting multiple times but did have a small bowel movement. Today she will on the date of admission she was able to keep a small amount of food down but no BM or gas. She had a CT scan of abdomen and pelvis was initially read as a small bowel obstruction however the ER physician consult the on-call radiologist who felt it more consistent with enteritis. We were consulted to admit the patient. She was started on empiric antibiotics Cipro and Flagyl. Both GI and surgery saw the patient.. GI did do an EGD on the patient and diagnosed her with reflux disease. Patient ultimately had surgery on November 01. Patient did have a small bowel obstruction. It patient several days but her abdomen did wake up. She started having bowel movements and gas management. She's doing much better on the floor today and is eligible for discharge - Time spent with patient Time with patient DS: Greater than 30 minutes Diagnosis - Discharge Diagnosis (1) Abdominal pain Status: Acute (2) Enteritis Status: Acute (3) Abnormal findings on diagnostic imaging of abdomen Status: Acute (4) Other specified counseling Status: Acute (5) Partial small bowel obstruction Status: Acute Discharge Plan - Discharge Data Disposition: Disch To Home/Self Care Condition at Discharge: Stable Discharge Diet: advance to your usual diet - Discharge Medications New Acetaminophen Tab [Tylenol Tab] 650 mg PO Q4H PRN #0 tablet PRN Reason: fever, headache/body aches Continue Multivitamin (Centrum) [Centrum Tab] 1 tablet PO DAILY - Follow Up or Referral Follow Up: Isaias Tarango III., MD [Physician] - 1 Week - Forms/Instructions Exam - Constitutional Vitals: Period Temp Pulse Resp BP Sys/Alcaraz Pulse Ox Last 24 Hr 97.8 F-99.2 F 74-92 17-18 120-153/68-86 97-100 General appearance: normal weight - Head Head exam: Present: normal inspection - ENT ENT exam: Present: normal exam - Neck Neck exam: Present: normal inspection - Respiratory Respiratory exam: Present: clear to auscultation bilaterally - Cardiovascular Cardiovascular exam: Present: regular rate and rhythm - GI/Abdominal GI/Abdominal exam: Present:active bowel sounds, tenderness - Extremities Exam Extremities exam: Present: normal inspection - Back Exam Back exam: Present: normal inspection - Neurological Exam Neurological exam: Present: alert - Psychiatric Psychiatric exam: Present: normal affect DS: Provider Date of admission: 10/26/16 23:28 Primary care physician: . No PCP Attending physician on admission: Denilson Woodard DO Consults: 10/28/16 10:22 Consult to Physician [CONS] Routine Comment: poss sbo Consulting Provider: Isaias Tarango III. Consult to Specialist Group: Surgery When should Consulting Provider be notified: Now Person Notified: Dr. Sukhdeep DEE Date Notified: 10/28/16 Time Notified: 10:29 Consult Notification Comment: Will be by to see pt shortly 11/01/16 18:49 Consult to Pharmacy [CONS] Routine Reason for Pharmacy Consult: Adjust Meds Renal Funct 11/05/16 11:24 Consult to Physical Therapy [CONS] Routine Reason for Physical Therapy: Evaluate and Treat Discharging clinician: Pa Traylor MD
[2016-11-07 09:37] VITALS: BP 130/73
== END 2016-11-07 11:45 | disposition home or self-care (01) | DRG 330 ==
LOC: N.ED 21:32 → N.EDINP 23:28 → SUATTDRO 23:28 → N.3E 10-27 00:52
PROVIDERS: ADMIT Internal Medicine; ATTEND Internal Medicine